=== PATIENT | female | born 1995 | race Caucasian/White ===

== ENCOUNTER 2017-11-11 11:06 | Emergency (ER) | payer MEDICAID ==
[~2017-11-11] VITALS: Ht 149.9 cm; Wt 72.6 kg
[2017-11-11 11:06] VITALS: BP_SYST 121
[2017-11-11 12:44] VITALS: BP_SYST 110
== END 2017-11-11 12:44 | disposition home or self-care (01) ==
LOC: SED 11:06
DX: J02.8 Acute pharyngitis due to other specified organisms (principal); B97.89 Other viral agents as the cause of diseases classified elsewhere; Z88.1 Allergy status to other antibiotic agents
CPT/HCPCS: 99281

== ENCOUNTER 2018-12-17 21:27 | Emergency (ER) | payer MEDICAID ==
[~2018-12-17] VITALS: Ht 149.9 cm; Wt 52.6 kg
[2018-12-17 21:44] VITALS: BP_SYST 104
[2018-12-18 01:22] VITALS: BP_SYST 112
== END 2018-12-18 01:22 | disposition home or self-care (01) ==
LOC: SED 21:27
DX: B34.9 Viral infection, unspecified (principal); Z88.1 Allergy status to other antibiotic agents
CPT/HCPCS: 99281

== ENCOUNTER 2021-05-25 13:44 | Emergency (ER) | payer OTHER, MEDICAID, SELFPAY ==
[~2021-05-25] VITALS: Ht 149.9 cm; Wt 57.2 kg
[2021-05-25 13:45] VITALS: BP_SYST 100
[2021-05-25 15:14] VITALS: BP_SYST 100
== END 2021-05-25 15:14 | disposition home or self-care (01) ==
LOC: SED 13:44
DX: U07.1 COVID-19 (principal); Z88.1 Allergy status to other antibiotic agents
CPT/HCPCS: 36415; 99283

== ENCOUNTER 2021-06-19 15:24 | Emergency (ER) | payer OTHER, MEDICAID, SELFPAY ==
[~2021-06-19] VITALS: Ht 149.9 cm; Wt 56.7 kg
[2021-06-19 15:46] VITALS: BP_SYST 113
--- NOTE | 2021-06-19 15:51 | NUR ---
triaged and placed in the waiting room
--- NOTE | 2021-06-19 16:00 | NUR ---
Patient to tent 1 to gown for evaluation. Side rails up.
--- NOTE | 2021-06-19 16:30 | NUR ---
pt arrives from home w/ c/o body aches, SOB, and hallucinations. Pt states that she was covid + 3 weeks ago and states that her symptoms are not improving. Pt is speaking in complete sentences. O2 sat is 100% on RA
--- NOTE | 2021-06-19 16:45 | NUR ---
TAY Morton at bedside examining patient.
--- NOTE | 2021-06-19 18:13 | NUR ---
Patient given written and verbal discharge instructions and verbalizes understanding. ER MD discussed with patient the results and treatment provided. Patient in stable condition. ID arm band removed. Patient educated on pain management and to follow up with PMD. Pain Scale 0/10. Opportunity for questions provided and answered. Medication side effect fact sheet provided.
[2021-06-19 18:39] VITALS: BP_SYST 113
== END 2021-06-19 18:13 | disposition home or self-care (01) ==
LOC: SED 15:24
DX: R68.83 Chills (without fever) (principal); R07.9 Chest pain, unspecified; Z88.1 Allergy status to other antibiotic agents
CPT/HCPCS: 71045; 99283

== ENCOUNTER 2022-08-13 11:57 | Emergency (ER) | payer MEDICAID, OTHER ==
[~2022-08-13] VITALS: Ht 149.9 cm; Wt 54.4 kg
[2022-08-13 12:10] VITALS: BP_SYST 130
--- NOTE | 2022-08-13 12:35 | NUR ---
MD DR VELARDE AT BEDSIDE
--- NOTE | 2022-08-13 12:46 | NUR ---
strep throat swab left with phleb cart in ER
[2022-08-13 13:45] LABS: MONOTEST NEGATIVE (NEGATIVE)
[2022-08-13 13:58] LABS: STREPTOCOCCUS A SCREEN (RAPID) NEGATIVE (NEGATIVE)
[2022-08-13] MEDS ORDERED: PSEU30TA36 PO (14:10)
[2022-08-13] MEDS ORDERED: IBUP-1969 PO (14:10)
--- NOTE | 2022-08-13 14:21 | NUR ---
PT BIB SELF, AWAKE AND ALERT, AOX4, PERRLA. NO SOB OR DISTRESS. PT C/O SORE THROAT X 3 DAYS. PT DENIES N/V, AND DIARHEA.
--- NOTE | 2022-08-13 14:25 | NUR ---
Patient given written and verbal discharge instructions and verbalizes understanding. ER MD discussed with patient the results and treatment provided. Patient in stable condition. ID arm band removed. Rx of SUDAFED given. Patient educated on pain management and to follow up with PMD. Pain Scale 3/10. Opportunity for questions provided and answered. Medication side effect fact sheet provided.
[2022-08-13 14:28] VITALS: BP_SYST 125
== END 2022-08-13 14:25 | disposition home or self-care (01) ==
LOC: SED 11:57
DX: J02.9 Acute pharyngitis, unspecified (principal); Z88.1 Allergy status to other antibiotic agents
CPT/HCPCS: 36415; 81025; 86308-TC; 86403; 87081; 99283